=== PATIENT | female | born 1935 | race Caucasian/White ===

== ENCOUNTER → 2017-06-12 | Outpatient (CLI) | payer MEDICARE ==
--- NOTE | 2017-06-13 13:02 | PE ---
EXAMINATION TYPE: PET CT fusion skull to thigh DATE OF EXAM: 06/12/2017 COMPARISON: NONE Prior PET/CT: HISTORY: Vulvar cancer TECHNIQUE: Following the intravenous administration of 13.76 mCi of F-18 FDG, whole body images are performed from the skull base to the midthigh. Images are reviewed on the computer in the coronal, a xial, and sagittal planes. Reconstructed rotating images are created on independent workstation and reviewed on the computer. A localization and attenuation correction CT is performed in conjunction with the PET scan. DLP: 280.56 mGycm SCAN: Subsequent Scan Blood glucose: 103 mg/dL Average Mediastinum SUV: 1.63 Average Liver SUV: 1.4 FINDINGS: NECK: No abnormal uptake THORAX: There is a focus of increased radiotracer accumulation within the superior mediastinum. Image 61. This has an SUV value 2.9 suspicious for metastasis. Some subtle uptake in the anterior pleural margin right apex. Images 61 with an SUV value 1.7. There is a focus of radiotracer accumulation with in the posterior mediastinum with an SUV value of 2.3. A pretracheal node same level has an SUV of 3. 0. Multiple lymph nodes are in the pretracheal space aortopulmonic window region with SUV values rang ing 3.3-5.9 suspicious for multiple metastatic lesions within the mediastinum. A large marked area of increased radiotracer accumulation is in the subcarinal region with an SUV value of 10.6. Bilateral perihilar uptake is present with an SUV of 5.0-6.2 compatible with metastatic disease. Some right inf rahilar increased uptake is also present. ABDOMEN: No abnormal uptake PELVIS: There is marked increased uptake within the soft tissue abnormality along the left inner thig h with an SUV of 5.3. Inflammatory change or neoplasm could be considered. OSSEOUS STRUCTURES: No abnormal uptake LOCALIZATION CT: There is a large cyst on the left kidney. Diverticulosis present. Soft tissue abnorm ality in her left thigh appears diminished. There are multiple lymph nodes with calcification in the mediastinum. These areas correspond to abnor mal uptake on PET/CT. COMPARISON: Uptake within the mediastinum has been increasing over the interval. Uptake in the left a nterior thigh appears stable. IMPRESSION: 1. Increasing mediastinal adenopathy with increasing radiotracer uptake. 2. Diminished uptake within a open wound of the left inner thigh
== END ==
LOC: RADPETMAIN 10:27
PROVIDERS: ATTEND Internal Medicine Hematology & Oncology
DX: C51.9 Malignant neoplasm of vulva, unspecified (principal); R59.0 Localized enlarged lymph nodes; R93.6 Abnormal findings on diagnostic imaging of limbs
CPT/HCPCS: 78815; A9552

== ENCOUNTER 2017-09-19 11:48 | Emergency (ER) | payer MEDICARE ==
[2017-09-19 12:03] VITALS: RESP 18
--- NOTE | 2017-09-19 12:40 | ED ---
General Adult HPI - General Chief complaint: Extremity Injury, Lower Stated complaint: Fall Time Seen by Provider: 09/19/17 12:25 Source: patient, RN notes reviewed Mode of arrival: wheelchair Limitations: no limitations - History of Present Illness Initial comments: Patient 81-year-old female presented to the emergency room today with a chief complaint of pain to the right leg. She does admit that she's had some cramps in the back the right calf and Right knee. She did admits that she had a fall approximately 2 months ago. She states she landed on the right knee. She also admits that she is on chemotherapy currently. Patient denies any other injury or complaint. Patient denies any recent fever, chills, shortness of breath, chest pain, back pain, abdominal pain, nausea or vomiting, numbness or tingling , headaches or visual changes, or any other complaints. - Related Data Home Medications Medication Instructions Recorded Confirmed Aspirin EC [Ecotrin Low Dose] 81 mg PO DAILY 03/10/17 09/19/17 Lisinopril-Hctz 20-12.5 mg 1 tab PO DAILY 03/10/17 09/19/17 [Zestoretic 20-12.5] [place]-3 Fatty Acids/Fish Oil [Fish 1 cap PO DAILY 03/10/17 09/19/17 Oil 1,000 mg Softgel] HYDROcodone/APAP 7.5-325MG [[place] 1 tab PO Q6H PRN 09/19/17 09/19/17 7.5-325] Prochlorperazine [Compazine] 10 mg PO DAILY 09/19/17 09/19/17 Allergies Allergy/AdvReac Type Severity Reaction Status Date / Time No Known Allergies Allergy Verified 09/19/17 12:31 Review of Systems ROS Statement: Those systems with pertinent positive or pertinent negative responses have been documented in the HPI. ROS Other: All systems not noted in ROS Statement are negative. Past Medical History Past Medical History: Eye Disorder, Hypertension, Rheumatoid Arthritis (RA) Additional Past Medical History / Comment(s): macular degeneration lt eye, vulvular cancer, incont of urine/briefs History of Any Multi-Drug Resistant Organisms: None Reported Past Surgical History: Section, Tonsillectomy Additional Past Surgical History / Comment(s): x4 c-sections, core biopsy for vulvular cancer done at [facility] Past Anesthesia/Blood Transfusion Reactions: No Reported Reaction Past Psychological History: No Psychological Hx Reported Smoking Status: Never smoker Past Alcohol Use History: None Reported Past Drug Use History: None Reported - Past Family History Mother History Unknown: Yes Additional Family Medical History / Comment(s): mom was found at home- Father Family Medical History: Cancer General Exam - General Exam Comments Initial Comments: General: The patient is awake and alert, in no distress, and does not appear acutely ill. Neck: The neck is supple, there is no tenderness or JVD. Cardiovascular: There is a regular rate and rhythm. No murmur, rub or gallop is appreciated. Respiratory: Lungs are clear to auscultation, respirations are non-labored, breath sounds are equal. No wheezes, stridor, rales, or rhonchi. Musculoskeletal: Patient does have normal appearance of the right knee, right leg with no obvious deformity. Pedal pulse 2+. Mother tender in posterior calf and right knee. Mild tenderness medial aspect of the right knee on exam. Shows good range of motion. Sensations are intact. Neurological: A&O x 3. CN II-XII intact, There are no obvious motor or sensory deficits. Coordination appears grossly intact. Speech is normal. Skin: Skin is warm and dry and no rashes or lesions are noted. Psychiatric: Normal mood and affect. Limitations: no limitations Course Vital Signs 09/19/17 11:59 Temperature 98.8 F Pulse Rate 82 Respiratory 18 Rate Blood Pressure 107/62 O2 Sat by Pulse 98 Oximetry Medical Decision Making - Medical Decision Making X-ray reviewed negative for any acute fracture dislocation. Patient also negative for any evidence of DVT. Patient will be discharged home to follow-up family doctor and oncologist. Disposition Clinical Impression: Leg cramp Disposition: HOME SELF-CARE Condition: Good Instructions: Leg Cramps (ED) Additional Instructions: Please use medication as discussed. Please follow-up with family doctor in the next 2 days of symptoms have not improved. Please return to emergency room if the symptoms increase or worsen or for any other concerns. Is patient prescribed a controlled substance at d/c from ED?: No Referrals: Mark Lim MD [Primary Care Provider] - 1-2 days Nash Beach MD [STAFF PHYSICIAN] - 1-2 days Time of Disposition: 14:14
--- NOTE | 2017-09-19 12:56 | XR ---
EXAMINATION TYPE: XR knee complete RT DATE OF EXAM: 09/19/2017 COMPARISON: NONE HISTORY: Pain TECHNIQUE: Four views are submitted. FINDINGS: Diffuse osteopenia noted and there is chondrocalcinosis. Narrowing of the joint space is seen.. Osse ous structures are intact. No acute fracture seen. IMPRESSION: 1. No acute fracture or dislocation. 2. Osteoarthritis.
--- NOTE | 2017-09-19 13:35 | US ---
EXAMINATION TYPE: US venous doppler duplex LE RT DATE OF EXAM: 09/19/2017 12:37 PM COMPARISON: NONE CLINICAL HISTORY: Pain right leg after a fall. SIDE PERFORMED: Right TECHNIQUE: The lower extremity deep venous system is examined utilizing real time linear array sonog sara with graded compression, doppler sonography and color-flow sonography. VESSELS IMAGED: External Iliac Vein (EIV) Common Femoral Vein Deep Femoral Vein Greater Saphenous Vein * Femoral Vein Popliteal Vein Small Saphenous Vein * Proximal Calf Veins (* superficial vessels) Right Leg: Negative for DVT IMPRESSION: 1. No diagnostic evidence of DVT as visualized
[2017-09-19 14:38] VITALS: BP 107/70; PULSE 71; TEMP 98.2
== END 2017-09-19 14:38 | disposition home or self-care (01) ==
LOC: EC 11:48
DX: M79.604 Pain in right leg (principal); C51.9 Malignant neoplasm of vulva, unspecified; M79.661 Pain in right lower leg; M25.561 Pain in right knee; I10 Essential (primary) hypertension; Z79.82 Long term (current) use of aspirin; Z79.899 Other long term (current) drug therapy
CPT/HCPCS: 99284

== ENCOUNTER 2018-01-13 11:35 | Inpatient (IN) | payer MEDICARE ==
[2018-01-13] MEDS ORDERED: SODIUM CHLORIDE 0.9% 1,000 ML IV STA (11:42)
--- NOTE | 2018-01-13 11:46 | ED ---
General Adult HPI - General Stated complaint: Weakness/Confusion Time Seen by Provider: 01/13/18 11:35 Source: RN notes reviewed - History of Present Illness Initial comments: This is an 82-year-old female who presents to the emergency department via EMS. Patient's complaint is that family called EMS because they thought she had some blood in the stool. EMS states she has an ulcer right by her rectum that is bleeding a little but they didn't see any earl blood otherwise. Patient herself is alert and oriented 3 however family thought she was a little less oriented than normal but she answers all questions appropriately currently. Patient has no complaints. Patient denies any headache patient denies any numbness weakness. Patient denies any lightheadedness or dizziness. Patient denies any chest pain palpitations difficulty breathing shortness of breath. Patient denies any recent fever chills or cough. Patient denies abdominal pain. Patient denies any nausea vomiting or diarrhea. Patient states she feels fine today. Patient states she's had a ulceration next to her rectum for long as she can remember. Family states she had vulvar cancer - Related Data Home Medications Medication Instructions Recorded Confirmed Lisinopril-Hctz 20-12.5 mg 1 tab PO DAILY 03/10/17 01/13/18 [Zestoretic 20-12.5] [place]-3 Fatty Acids/Fish Oil [Fish 1 cap PO DAILY 03/10/17 01/13/18 Oil 1,000 mg Softgel] HYDROcodone/APAP 7.5-325MG [[place] 1 tab PO Q6H PRN 09/19/17 01/13/18 7.5-325] Nystatin 100,000Unit/gm Cream 1 applic TOPICAL BID 01/13/18 01/13/18 [Mycostatin Cream] Allergies Allergy/AdvReac Type Severity Reaction Status Date / Time No Known Allergies Allergy Verified 01/13/18 12:01 Review of Systems ROS Statement: Those systems with pertinent positive or pertinent negative responses have been documented in the HPI. ROS Other: All systems not noted in ROS Statement are negative. Past Medical History Past Medical History: Eye Disorder, Hypertension, Rheumatoid Arthritis (RA) Additional Past Medical History / Comment(s): macular degeneration lt eye, vulvular cancer, incont of urine/briefs History of Any Multi-Drug Resistant Organisms: None Reported Past Surgical History: Section, Tonsillectomy Additional Past Surgical History / Comment(s): x4 c-sections, core biopsy for vulvular cancer done at [facility] Past Anesthesia/Blood Transfusion Reactions: No Reported Reaction Smoking Status: Never smoker - Past Family History Mother History Unknown: Yes Additional Family Medical History / Comment(s): mom was found at home- Father Family Medical History: Cancer General Exam - General Exam Comments Initial Comments: GENERAL: Patient is well-developed and well-nourished. Patient is nontoxic and well- hydrated and is in no acute distress. ENT: Neck is soft and supple. No significant lymphadenopathy is noted. Oropharynx is clear. Moist mucous membranes. Neck has full range of motion without eliciting any pain. EYES: The sclera were anicteric and conjunctiva were pink and moist. Extraocular movements were intact and pupils were equal round and reactive to light. Eyelids were unremarkable. PULMONARY: Unlabored respirations. Good breath sounds bilaterally. No audible rales rhonchi or wheezing was noted. CARDIOVASCULAR: There is a regular rate and rhythm without any murmurs gallops or rubs. Femoral pulses are equal bilaterally ABDOMEN: Soft and nontender with normal bowel sounds. No palpable organomegaly was noted. There is no palpable pulsatile mass. RECTAL: On examination patient has a ulceration to the medial right aspect of the anus and it also involves the anus and there is erythema around it and quite a bit of stool and it SKIN: Ulceration on the medial left perineum involving the anus NEUROLOGIC: Patient is alert and oriented x3. Cranial nerves II through XII are grossly intact. Motor and sensory are also intact. Normal speech, volume and content. Symmetrical smile. MUSCULOSKELETAL: Normal extremities with adequate strength and full range of motion. No lower extremity swelling or edema. No calf tenderness. LYMPHATICS: No significant lymphadenopathy is noted PSYCHIATRIC: Normal psychiatric evaluation. Course Vital Signs 01/13/18 11:52 Temperature 98.1 F Pulse Rate 82 Respiratory 18 Rate Blood Pressure 91/49 O2 Sat by Pulse 99 Oximetry Medical Decision Making - Medical Decision Making EKG shows sinus rhythm with occasional PAC at 77 bpm DE interval is 128 QRS is 96 QT interval 414 QTC is 460. Patient's EKG shows no evidence of ST segment elevation or depression. Patient started on antibiotics emergency department 2 g Rocephin. No source of infection was found at this point but because of the white count and the potential infection with the wound I started antibiotics. Spoke with Dr. Lim admitted the patient I wrote admitting orders - Lab Data Result diagrams: 01/13/18 12:15 01/13/18 12:15 Lab Results 01/13/18 01/13/18 01/13/18 Range/Units 12:15 12:15 12:15 WBC 15.3 H (3.8-10.6) k/uL RBC 4.07 (3.80-5.40) m/uL Hgb 11.7 (11.4-16.0) gm/dL Hct 38.2 (34.0-46.0) % MCV 93.7 (80.0-100.0) fL MCH 28.8 (25.0-35.0) pg MCHC 30.8 L (31.0-37.0) g/dL RDW 13.7 (11.5-15.5) % Plt Count 541 H (150-450) k/uL Neutrophils % 89 % Lymphocytes % 6 % Monocytes % 4 % Eosinophils % 1 % Basophils % 0 % Neutrophils # 13.7 H (1.3-7.7) k/uL Lymphocytes # 0.8 L (1.0-4.8) k/uL Monocytes # 0.6 (0-1.0) k/uL Eosinophils # 0.1 (0-0.7) k/uL Basophils # 0.0 (0-0.2) k/uL PT (9.0-12.0) sec INR (<1.2) APTT (22.0-30.0) sec Sodium (137-145) mmol/L Potassium (3.5-5.1) mmol/L Chloride (98-107) mmol/L Carbon Dioxide (22-30) mmol/L Anion Gap mmol/L BUN (7-17) mg/dL Creatinine (0.52-1.04) mg/dL Est GFR (CKD-EPI)AfAm (>60 ml/min/1.73 sqM) Est GFR (CKD-EPI)NonAf (>60 ml/min/1.73 sqM) Glucose (74-99) mg/dL Plasma Lactic Acid Mark (0.7-2.0) mmol/L Calcium (8.4-10.2) mg/dL Magnesium (1.6-2.3) mg/dL Total Bilirubin (0.2-1.3) mg/dL AST (14-36) U/L ALT (9-52) U/L Alkaline Phosphatase (38-126) U/L Total Creatine Kinase <20 L (30-135) U/L CK-MB (CK-2) 1.1 (0.0-2.4) ng/mL CK-MB (CK-2) Rel Index Troponin I <0.012 (0.000-0.034) ng/mL Total Protein (6.3-8.2) g/dL Albumin (3.5-5.0) g/dL Stool Occult Blood (Negative) Blood Type A Negative Blood Type Recheck CABO Indicated Weak D (Du) POSITIVE Antibody Screen NEGATIVE PARMJIT, IgG Interpret Negative PARMJIT, Poly Interpret Negative Spec Expiration Date 01/16/2018231401/13/18 01/13/18 01/13/18 Range/Units 12:15 12:15 12:15 WBC (3.8-10.6) k/uL RBC (3.80-5.40) m/uL Hgb (11.4-16.0) gm/dL Hct (34.0-46.0) % MCV (80.0-100.0) fL MCH (25.0-35.0) pg MCHC (31.0-37.0) g/dL RDW (11.5-15.5) % Plt Count (150-450) k/uL Neutrophils % % Lymphocytes % % Monocytes % % Eosinophils % % Basophils % % Neutrophils # (1.3-7.7) k/uL Lymphocytes # (1.0-4.8) k/uL Monocytes # (0-1.0) k/uL Eosinophils # (0-0.7) k/uL Basophils # (0-0.2) k/uL PT (9.0-12.0) sec INR (<1.2) APTT (22.0-30.0) sec Sodium 132 L (137-145) mmol/L Potassium 4.6 (3.5-5.1) mmol/L Chloride 95 L (98-107) mmol/L Carbon Dioxide 28 (22-30) mmol/L Anion Gap 9 mmol/L BUN 16 (7-17) mg/dL Creatinine 0.69 (0.52-1.04) mg/dL Est GFR (CKD-EPI)AfAm >90 (>60 ml/min/1.73 sqM) Est GFR (CKD-EPI)NonAf 80 (>60 ml/min/1.73 sqM) Glucose 82 (74-99) mg/dL Plasma Lactic Acid Mark 2.0 (0.7-2.0) mmol/L Calcium 10.8 H (8.4-10.2) mg/dL Magnesium 1.8 (1.6-2.3) mg/dL Total Bilirubin 0.7 (0.2-1.3) mg/dL AST 20 (14-36) U/L ALT 11 (9-52) U/L Alkaline Phosphatase 99 (38-126) U/L Total Creatine Kinase (30-135) U/L CK-MB (CK-2) (0.0-2.4) ng/mL CK-MB (CK-2) Rel Index Troponin I (0.000-0.034) ng/mL Total Protein 6.3 (6.3-8.2) g/dL Albumin 3.2 L (3.5-5.0) g/dL Stool Occult Blood Negative (Negative) Blood Type Blood Type Recheck Weak D (Du) Antibody Screen PARMJIT, IgG Interpret PARMJIT, Poly Interpret Spec Expiration Date 01/13/18 Range/Units 12:33 WBC (3.8-10.6) k/uL RBC (3.80-5.40) m/uL Hgb (11.4-16.0) gm/dL Hct (34.0-46.0) % MCV (80.0-100.0) fL MCH (25.0-35.0) pg MCHC (31.0-37.0) g/dL RDW (11.5-15.5) % Plt Count (150-450) k/uL Neutrophils % % Lymphocytes % % Monocytes % % Eosinophils % % Basophils % % Neutrophils # (1.3-7.7) k/uL Lymphocytes # (1.0-4.8) k/uL Monocytes # (0-1.0) k/uL Eosinophils # (0-0.7) k/uL Basophils # (0-0.2) k/uL PT 10.9 (9.0-12.0) sec INR 1.1 (<1.2) APTT 28.3 (22.0-30.0) sec Sodium (137-145) mmol/L Potassium (3.5-5.1) mmol/L Chloride (98-107) mmol/L Carbon Dioxide (22-30) mmol/L Anion Gap mmol/L BUN (7-17) mg/dL Creatinine (0.52-1.04) mg/dL Est GFR (CKD-EPI)AfAm (>60 ml/min/1.73 sqM) Est GFR (CKD-EPI)NonAf (>60 ml/min/1.73 sqM) Glucose (74-99) mg/dL Plasma Lactic Acid Mark (0.7-2.0) mmol/L Calcium (8.4-10.2) mg/dL Magnesium (1.6-2.3) mg/dL Total Bilirubin (0.2-1.3) mg/dL AST (14-36) U/L ALT (9-52) U/L Alkaline Phosphatase (38-126) U/L Total Creatine Kinase (30-135) U/L CK-MB (CK-2) (0.0-2.4) ng/mL CK-MB (CK-2) Rel Index Troponin I (0.000-0.034) ng/mL Total Protein (6.3-8.2) g/dL Albumin (3.5-5.0) g/dL Stool Occult Blood (Negative) Blood Type Blood Type Recheck Weak D (Du) Antibody Screen PARMJIT, IgG Interpret PARMJIT, Poly Interpret Spec Expiration Date Disposition Clinical Impression: Infection of wound of perineum Disposition: ADMITTED IP TO THIS HOSP Referrals: Mark Lim MD [Primary Care Provider] - 1-2 days Time of Disposition: 15:39
[2018-01-13] MEDS ORDERED: HYDROmorphone 1 MG/ML 1 ML SYRINGE IVP STA ×2 (12:36→15:34)
[2018-01-13] MEDS ORDERED: ONDANSETRON 4 MG/2 ML VIAL IVP STA (12:36)
[2018-01-13 12:46] LABS: Basophils % (A) 0 %; Eosinophils # (A) 0.1 k/uL (0-0.7); Eosinophils % (A) 1 %; HCT 38.2 % (34.0-46.0); HGB 11.7 gm/dL (11.4-16.0); Lymphocytes # (A) 0.8 k/uL (1.0-4.8); Lymphocytes % (A) 6 %; MCH 28.8 pg (25.0-35.0); MCHC 30.8 g/dL (31.0-37.0); MCV 93.7 fL (80.0-100.0); Mean Platelet Volume 6.7; Monocytes # (A) 0.6 k/uL (0-1.0); Monocytes % (A) 4 %; Neutrophils # (A) 13.7 k/uL (1.3-7.7); Neutrophils % (A) 89 %; Platelet Count 541 k/uL (150-450); RBC 4.07 m/uL (3.80-5.40); RDW 13.7 % (11.5-15.5); WBC 15.3 k/uL (3.8-10.6)
[2018-01-13 12:54] LABS: ALT 11 U/L (9-52); AST 20 U/L (14-36); Albumin 3.2 g/dL (3.5-5.0); Alkaline Phosphatase 99 U/L (38-126); Anion Gap 9 mmol/L; Blood Urea Nitrogen 16 mg/dL (7-17); Calcium 10.8 mg/dL (8.4-10.2); Carbon Dioxide 28 mmol/L (22-30); Chloride 95 mmol/L (98-107); Glucose 82 mg/dL (74-99); Magnesium 1.8 mg/dL (1.6-2.3); Potassium 4.6 mmol/L (3.5-5.1); Sodium 132 mmol/L (137-145); Total Bilirubin 0.7 mg/dL (0.2-1.3); Total Protein 6.3 g/dL (6.3-8.2)
[2018-01-13 13:03] LABS: Creatine Kinase <20 U/L (30-135)
[2018-01-13 13:15] LABS: Creatine Kinase MB 1.1 ng/mL (0.0-2.4); Troponin I <0.012 ng/mL (0.000-0.034)
[2018-01-13 13:16] LABS: INR 1.1 (<1.2); Partial Thromboplastin Time 28.3 sec (22.0-30.0); Prothrombin Time 10.9 sec (9.0-12.0)
[2018-01-13] MEDS ORDERED: cefTRIAXone 2,000 MG in SODIUM CHLORIDE 0.9% 100 ML IVPB STA (15:05)
[2018-01-13] MEDS ORDERED: SODIUM CHLORIDE 0.9% 1,000 ML IV ONE (15:39)
[2018-01-13] MEDS ORDERED: LEVOFLOXACIN 750MG-D5W PMX 750 MG in DEXTROSE/WATER 1 150ML.BAG IVPB STA (15:40)
[2018-01-13 15:44] LABS: Appearance,Urine Cloudy (Clear); Bilirubin,Urine Negative (Negative); Blood,Urine Negative (Negative); Color,Urine Yellow; Glucose,Urine (UA) Negative (Negative); Ketones,Urine Negative (Negative); Leukocyte Esterase,Urine Trace (Negative); Mucus,Urine Rare /hpf; Nitrite,Urine Negative (Negative); Protein,Urine Negative (Negative); RBC,Urine <1 /hpf (0-5); Specific Gravity,Urine 1.009 (1.001-1.035); Squamous Epithelial Cell,Urine <1 /hpf (0-4); Urobilinogen,Urine <2.0 mg/dL (<2.0); WBC,Urine 1 /hpf (0-5)
[2018-01-13 17:14] VITALS: BMI 20.5
[2018-01-13] MEDS: HYDROcodone/APAP 7.5-325MG 1 EACH TAB PO PRN (19:49)
[2018-01-14] MEDS: NYSTATIN 100,000UNIT/GM CREAM 30 GM TUBE TOPICAL SCH ×3 (01:54→20:18)
--- NOTE | 2018-01-14 08:02 | P.HPIM ---
History of Present Illness H&P Date: 01/14/18 Chief Complaint: Perineal wound. This is a history and physical on an 82-year-old white female essentially admitted for bleeding per rectum. The patient has history of being treated for vulvar carcinoma and was having bright red blood per rectum. Her son, who is her caregiver was recently admitted for cellulitis, but is at [facility]. There has been issues where there is question of care and adult protective exercise been evaluating there are case at home. She is now admitted for appropriate treatment of this wound. Oncology and general surgery have been appropriately consulted. Review of Systems Constitutional: Reports fatigue, Reports weakness, Denies chills, Denies fever Eyes: denies blurred vision, denies pain Ears, nose, mouth and throat: Denies headache, Denies sore throat Cardiovascular: Denies chest pain, Denies shortness of breath Respiratory: Denies cough Gastrointestinal: Reports BRBPR Musculoskeletal: Denies myalgias Integumentary: Denies pruritus, Denies rash Neurological: Denies numbness, Denies weakness Psychiatric: Denies anxiety, Denies depression Past Medical History Past Medical History: Eye Disorder, Hypertension, Rheumatoid Arthritis (RA) Additional Past Medical History / Comment(s): macular degeneration lt eye, vulvular cancer, incont of urine/briefs History of Any Multi-Drug Resistant Organisms: None Reported Past Surgical History: Section, Tonsillectomy Additional Past Surgical History / Comment(s): x4 c-sections, core biopsy for vulvular cancer done at formerly [facility] Past Anesthesia/Blood Transfusion Reactions: No Reported Reaction Past Psychological History: No Psychological Hx Reported Additional Psychological History / Comment(s): lives with son inez-he his her caregiver and poa. has cane and getting a hospital bed delivered. has [facility] home care nurse. Smoking Status: Never smoker Past Alcohol Use History: None Reported Past Drug Use History: None Reported - Past Family History Mother History Unknown: Yes Additional Family Medical History / Comment(s): mom was found at home- Father Family Medical History: Cancer Medications and Allergies Home Medications Medication Instructions Recorded Confirmed Type Lisinopril-Hctz 20-12.5 mg 1 tab PO DAILY 03/10/17 01/13/18 History [Zestoretic 20-12.5] [place]-3 Fatty Acids/Fish Oil [Fish 1 cap PO DAILY 03/10/17 01/13/18 History Oil 1,000 mg Softgel] HYDROcodone/APAP 7.5-325MG [[place] 1 tab PO Q6H PRN 09/19/17 01/13/18 History 7.5-325] Nystatin 100,000Unit/gm Cream 1 applic TOPICAL BID 01/13/18 01/13/18 History [Mycostatin Cream] Allergies Allergy/AdvReac Type Severity Reaction Status Date / Time No Known Allergies Allergy Verified 01/13/18 12:01 Physical Exam Vitals: Vital Signs Temp Pulse Pulse Resp BP BP Pulse Ox 01/14/18 00:11 97.4 F L 75 15 103/61 96 01/13/18 19:54 98.4 F 85 16 112/61 98 01/13/18 16:40 97.6 F 76 16 133/58 100 01/13/18 16:00 97.6 F 16 100 01/13/18 15:42 86 17 135/67 97 01/13/18 11:52 98.1 F 82 18 91/49 99 Intake and Output 01/13/18 01/14/18 01/14/18 22:59 06:59 14:59 Output Total 400 160 Balance -400 -160 Output: Urine 160 Urine/Stool Mix 400 Other: Voiding Method Indwelling Catheter Indwelling Catheter Weight 50.802 kg - Constitutional General appearance: thin - EENT Eyes: EOMI - Neck Neck: no lymphadenopathy - Respiratory Respiratory: bilateral: CTA - Cardiovascular Rhythm: regular Heart sounds: normal: S1, S2 Abnormal Heart Sounds: no S3 Gallop - Gastrointestinal General gastrointestinal: soft - Genitourinary Perineal wound noted. - Musculoskeletal Musculoskeletal: generalized weakness - Psychiatric Psychiatric: no A&O x's 3 Results CBC & Chem 7: 01/13/18 12:15 01/13/18 12:15 Labs: Abnormal Lab Results - Last 24 Hours (Table) 01/13/18 01/13/18 01/13/18 Range/Units 12:15 12:15 12:15 WBC 15.3 H (3.8-10.6) k/uL MCHC 30.8 L (31.0-37.0) g/dL Plt Count 541 H (150-450) k/uL Neutrophils # 13.7 H (1.3-7.7) k/uL Lymphocytes # 0.8 L (1.0-4.8) k/uL Sodium 132 L (137-145) mmol/L Chloride 95 L (98-107) mmol/L Calcium 10.8 H (8.4-10.2) mg/dL Total Creatine Kinase <20 L (30-135) U/L Albumin 3.2 L (3.5-5.0) g/dL Urine Appearance (Clear) Ur Leukocyte Esterase (Negative) Urine Mucus (None) /hpf 01/13/18 Range/Units 15:33 WBC (3.8-10.6) k/uL MCHC (31.0-37.0) g/dL Plt Count (150-450) k/uL Neutrophils # (1.3-7.7) k/uL Lymphocytes # (1.0-4.8) k/uL Sodium (137-145) mmol/L Chloride (98-107) mmol/L Calcium (8.4-10.2) mg/dL Total Creatine Kinase (30-135) U/L Albumin (3.5-5.0) g/dL Urine Appearance Cloudy H (Clear) Ur Leukocyte Esterase Trace H (Negative) Urine Mucus Rare H (None) /hpf Thrombosis Risk Factor Assmnt - Choose All That Apply Any of the Below Risk Factors Present?: No Other Risk Factors: No Other congenital or acquired thrombophilia - If yes, enter type in comment: No Thrombosis Risk Factor Assessment Level: Very Low Risk Assessment and Plan (1) Generalized weakness Current Visit: Yes Status: Acute Code(s): R53.1 - WEAKNESS SNOMED Code(s) : 13546228 (2) Hypertension Current Visit: Yes Status: Acute Code(s): I10 - ESSENTIAL (PRIMARY) HYPERTENSION SNOMED Code(s): 81193294 (3) Infection of wound of perineum Current Visit: Yes Status: Acute Code(s): OKT5343 - SNOMED Code(s): 113866783 (4) Nausea & vomiting Current Visit: No Status: Acute Code(s): R11.2 - NAUSEA WITH VOMITING, UNSPECIFIED SNOMED Code(s): 71027356 (5) Vulvar carcinoma Current Visit: No Status: Acute Code(s): C51.9 - MALIGNANT NEOPLASM OF VULVA , UNSPECIFIED SNOMED Code(s): 102645456 Plan: This started. Antibiotic treatment with appropriate wound control if debridement is even possible given the location. Prognosis guarded secondary lower carcinoma. General surgery and oncology is not consulted. Appropriate pain control. Prognosis is guarded secondary to her vulvar carcinoma. Given her disorientation and weakness, question discharge planning for palliative versus hospice type care. I will discuss this with her son at the other hospital today. Dr. Zapien's group will covering for the weekend. Check CBC and CMP in a.m. Time with Patient: Greater than 30
[2018-01-14] MEDS ORDERED: NON-FORMULARY DRUG (Omega-3 Fatty Acids/Fish Oil [Fish Oil 1,000 Mg Softgel] 1 CAP) PO SCH (09:00)
--- NOTE | 2018-01-14 09:49 | P.GSCN ---
<Radha Palcaios - Last Filed: 01/14/18 09:26> History of Present Illness Consult date: 01/14/18 Reason for Consult: Open perineal wound ulcer History of present illness: 82-year-old thin female being seen by surgical service at the request of the attending for an open infected ulcer to the perineal area patient has a history of having vulvar cancer. Patient is a poor historian. Has no recall of events reviewing the emergency room record indicates the EMS system was activated when family thought they saw blood in the stool. EMS report indicated there to be an ulcer to the right of the rectum that was bleeding the could see no earl blood. Currently patient states she's had this ulcerative area for a long time and had received radiation treatment last treatment was in September this year emergency room record indicates patient had a core biopsy for vulvular cancer at [facility] white count on admission 15 patient does have an ulcerative area medial to the right of the anus moderate amount of redness around it currently incontinent small stool top part of the vagina pink distal from the bottom part of the vagina opening to the rectum massive ulcer covering bilateral parts of the lower buttocks difficult to do an adequate physical exam has contractures to the lower extremities unable to straighten them in the emergency room indwelling Sandhu catheter was inserted the white count in the emergency room Past medical history hypertension, rheumatoid arthritis and given degeneration left eye vulvular cancer Past surgical history , tonsillectomy, core biopsy of the vulvular Review of Systems Essentially unremarkable except as mentioned in the present illness Past Medical History Past Medical History: Eye Disorder, Hypertension, Rheumatoid Arthritis (RA) Additional Past Medical History / Comment(s): macular degeneration lt eye, vulvular cancer, incont of urine/briefs History of Any Multi-Drug Resistant Organisms: None Reported Past Surgical History: Section, Tonsillectomy Additional Past Surgical History / Comment(s): x4 c-sections, core biopsy for vulvular cancer done at [facility] Past Anesthesia/Blood Transfusion Reactions: No Reported Reaction Past Psychological History: No Psychological Hx Reported Additional Psychological History / Comment(s): lives with son inez-he his her caregiver and poa. has cane and getting a hospital bed delivered. has [facility] home care nurse. Smoking Status: Never smoker Past Alcohol Use History: None Reported Past Drug Use History: None Reported - Past Family History Mother History Unknown: Yes Additional Family Medical History / Comment(s): mom was found at home- Father Family Medical History: Cancer Medications and Allergies Home Medications Medication Instructions Recorded Confirmed Type Lisinopril-Hctz 20-12.5 mg 1 tab PO DAILY 03/10/17 01/13/18 History [Zestoretic 20-12.5] [place]-3 Fatty Acids/Fish Oil [Fish 1 cap PO DAILY 03/10/17 01/13/18 History Oil 1,000 mg Softgel] HYDROcodone/APAP 7.5-325MG [[place] 1 tab PO Q6H PRN 09/19/17 01/13/18 History 7.5-325] Nystatin 100,000Unit/gm Cream 1 applic TOPICAL BID 01/13/18 01/13/18 History [Mycostatin Cream] Allergies Allergy/AdvReac Type Severity Reaction Status Date / Time No Known Allergies Allergy Verified 01/13/18 12:01 Surgical - Exam Vital Signs Temp Pulse Resp BP Pulse Ox 98.1 F 82 18 91/49 99 01/13/18 11:52 01/13/18 11:52 01/13/18 11:52 01/13/18 11:52 01/13/18 11:52 GENERAL APPEARANCE: thin slightly cachectic in appearance 82 -year-old female patient is alert, oriented to self and place episodes of forgetfulness VITAL SIGNS: Reviewed HEENT: Head is normocephalic and atraumatic. Pupils are equal and reactive. The nares are patent. Oropharynx is clear without lesions. NECK: Supple without lymphadenopathy. Traches midline. HEART: S1, S2. Regular rate and rhythm. No murmur denying chest pain LUNGS: No crackles or wheezes are heard. Sats are 98% on room air ABDOMEN: Soft, nontender, nondistended with good bowel sounds. No peritoneal signs. No palpable organomegaly or masses. EXTREMITIES: Bilateral lower extremity contracture unable to straighten legs muscle wasting noted no heel breakdown Rectum ulcerative area covering bilateral buttocks red no odor noted incontinent small and stool no blood noted no earl rectal bleeding noted Skin ulceration involving the anus Results - Labs 01/13/18 12:15 01/13/18 12:15 Abnormal Lab Results - Last 24 Hours (Table) 10/04/18 10/04/18 10/04/18 Range/Units 12:15 12:15 12:15 WBC 15.3 H (3.8-10.6) k/uL MCHC 30.8 L (31.0-37.0) g/dL Plt Count 541 H (150-450) k/uL Neutrophils # 13.7 H (1.3-7.7) k/uL Lymphocytes # 0.8 L (1.0-4.8) k/uL Sodium 132 L (137-145) mmol/L Chloride 95 L (98-107) mmol/L Calcium 10.8 H (8.4-10.2) mg/dL Total Creatine Kinase <20 L (30-135) U/L Albumin 3.2 L (3.5-5.0) g/dL Urine Appearance (Clear) Ur Leukocyte Esterase (Negative) Urine Mucus (None) /hpf 01/13/18 Range/Units 15:33 WBC (3.8-10.6) k/uL MCHC (31.0-37.0) g/dL Plt Count (150-450) k/uL Neutrophils # (1.3-7.7) k/uL Lymphocytes # (1.0-4.8) k/uL Sodium (137-145) mmol/L Chloride (98-107) mmol/L Calcium (8.4-10.2) mg/dL Total Creatine Kinase (30-135) U/L Albumin (3.5-5.0) g/dL Urine Appearance Cloudy H (Clear) Ur Leukocyte Esterase Trace H (Negative) Urine Mucus Rare H (None) /hpf Diabetes panel 01/13/18 Range/Units 12:15 Sodium 132 L (137-145) mmol/L Potassium 4.6 (3.5-5.1) mmol/L Chloride 95 L (98-107) mmol/L Carbon Dioxide 28 (22-30) mmol/L BUN 16 (7-17) mg/dL Creatinine 0.69 (0.52-1.04) mg/dL Glucose 82 (74-99) mg/dL Calcium 10.8 H (8.4-10.2) mg/dL AST 20 (14-36) U/L ALT 11 (9-52) U/L Alkaline Phosphatase 99 (38-126) U/L Total Protein 6.3 (6.3-8.2) g/dL Albumin 3.2 L (3.5-5.0) g/dL Calcium panel 01/13/18 Range/Units 12:15 Calcium 10.8 H (8.4-10.2) mg/dL Albumin 3.2 L (3.5-5.0) g/dL Pituitary panel 01/13/18 Range/Units 12:15 Sodium 132 L (137-145) mmol/L Potassium 4.6 (3.5-5.1) mmol/L Chloride 95 L (98-107) mmol/L Carbon Dioxide 28 (22-30) mmol/L BUN 16 (7-17) mg/dL Creatinine 0.69 (0.52-1.04) mg/dL Glucose 82 (74-99) mg/dL Calcium 10.8 H (8.4-10.2) mg/dL Adrenal panel 01/13/18 Range/Units 12:15 Sodium 132 L (137-145) mmol/L Potassium 4.6 (3.5-5.1) mmol/L Chloride 95 L (98-107) mmol/L Carbon Dioxide 28 (22-30) mmol/L BUN 16 (7-17) mg/dL Creatinine 0.69 (0.52-1.04) mg/dL Glucose 82 (74-99) mg/dL Calcium 10.8 H (8.4-10.2) mg/dL Total Bilirubin 0.7 (0.2-1.3) mg/dL AST 20 (14-36) U/L ALT 11 (9-52) U/L Alkaline Phosphatase 99 (38-126) U/L Total Protein 6.3 (6.3-8.2) g/dL Albumin 3.2 L (3.5-5.0) g/dL Assessment and Plan Assessment: Impression Present on admission ulcerative area to the perineum History of Vulvar carcinoma cord biopsies done at [facility] Generalized weakness and inability to participate in ADLs Present on admission leukocytosis suspect due to infection perineuml ulcerative area Plan Continue current recommendations from medical service IV antibiotics as ordered Further recommendations after Dr. Mccabe evaluates if it would be appropriate to do debridement of peritoneal area given the location Await oncology eval Nutritional support Further surgical recommendations pending Surgical consultation note dictated for Dr. mccabe The above impression and plan of care have been discussed and directed by signing physician. Radha Palacios nurse practitioner acting as scribe for signing physician. <Portillo Mccabe - Last Filed: 01/14/18 13:28> Surgical - Exam Vital Signs Temp Pulse Resp BP Pulse Ox 98.1 F 82 18 91/49 99 01/13/18 11:52 01/13/18 11:52 01/13/18 11:52 01/13/18 11:52 01/13/18 11:52 Results - Labs 01/13/18 12:15 01/13/18 12:15 Abnormal Lab Results - Last 24 Hours (Table) 01/13/18 Range/Units 15:33 Urine Appearance Cloudy H (Clear) Ur Leukocyte Esterase Trace H (Negative) Urine Mucus Rare H (None) /hpf Assessment and Plan Assessment: As above. Patient with a large necrotic wound involving the entire anal region and perineal body. Patient with known history of peritoneal cancer. Diverting ostomy would be an option however overall prognosis remains quite poor apparently. Await oncology evaluation. Continue barrier cream around wound site at this time. No debridement planned.
[2018-01-14] MEDS: LISINOPRIL-HCTZ 20-12.5 MG 1 EACH TAB PO SCH (10:29)
[2018-01-14] MEDS: HYDROcodone/APAP 7.5-325MG 1 EACH TAB PO PRN ×2 (10:29→17:32)
[2018-01-14] MEDS ORDERED: LEVOFLOXACIN 750MG-D5W PMX 750 MG in DEXTROSE/WATER 1 150ML.BAG IVPB SCH (16:00)
[2018-01-14] MEDS: HEPARIN SODIUM,PORCINE 5,000 UNIT/ML 1 ML VIAL SQ SCH (17:31)
[2018-01-14] MEDS: FAMOTIDINE 20 MG/2 ML VIAL IV SCH (20:18)
--- NOTE | 2018-01-14 23:16 | P.CONS ---
History of Present Illness - Reason for Consult Consult date: 01/14/18 - History of Present Illness Ms. Truong is an 82 yr old white female, who was initially seen by [facility], Dr. Mcfarlane, locally, offer referral by her primary care physician. The patient had had an area of swelling and redness in the left groin that had been present for at least a year. It had apparently been growing slowly during that time and had become increasingly painful to the point where she was having difficulty in sitting or laying on her left side. She had also noted intermittent drainage from this area including blood. The patient was felt to likely have a vulvar malignancy, and was referred to [facility] oncology, Dr. Murray, at [facility] in [place]. She was seen on 01/25/17. Biopsies were performed on 01/27/17, which were nondiagnostic. PET scan from 02/02/17 showed an FDG avid soft tissue mass in the left gluteal/proximal medial left thigh subcutaneous fat extending into the midline gluteal crease. There was no evidence of metastatic disease. Mildly enlarged FDG avid lymph nodes were seen throughout the mediastinum which are felt to represent old granulomatous disease , as they were mostly calcified. Clinically the patient was felt to have locally advanced vulvar carcinoma. She was not felt to be a surgical candidate due to her age and overall frailty. Concurrent chemoradiation was recommended and the patient was referred to radiation oncology here, as she wanted to have treatment locally. 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 Definite invasion was not noted but dermis was poorly represented. Again, given that the clinical presentation was consistent with locally advanced disease, concurrent chemoradiation was recommended. The patient was therefore referred here. She denied any prior history of malignancy. She started concurrent chemoRT with weekly cisplatin. She is s/p 6 cycles She completed RT on 05/07/17,and chemo on 04/30/17. SHe had marked symptomatic improvement. She had a repeat PET on 06/13/17, showing a good partial response at the primary site, but a new area of uptake in the rt infrahilar region in the lung. SHe had a bronchoscopy with Dr Michael, which was negative. She was seen by Dr Bertrand at [facility]. She was felt to be resectable, but would require removal of the terminal rectum and anal canal, requiring a permanent colostomy most likely. She was reluctant for that and was thus referred back here. We discussed various options, including systemic combination chemo, for possible cytoreduction, that could reduce the extent of surgery. SHe ultimately decided in favor of the same, and started Carbo /Taxol on 08/30/17. She is s/p 2 cycles. The patient did not follow up in the office after cycle 2, that was given in 09/27. They were unable to contact her, and actually called emergency services for a well check. The patient's son subsequently called back and stated that he was unable to bring her to her appointments, as he was having hip replacement. He stated that he would call back to reschedule and resume chemotherapy when able. However we did not receive any communication from them subsequently, and the pt did not f/u She was brought to the ER by her family as they had noted blood in her underwear. In the ER she was noted to have extensive ulceration in the perineal area. The pt is a poor historian, and could not provide any details. She did state however, that her son is also currently hospitalized. Oncology consult was placed for further evaluation and recommendations. Review of Systems Constitutional: Reports chronic pain, Reports poor appetite, Reports weakness Eyes: denies blurred vision, denies pain Ears: deny: decreased hearing, ear discharge, earache, tinnitus Ears, nose, mouth and throat: Denies headache, Denies sore throat Cardiovascular: Reports decreased exercise tolerance Respiratory: Denies cough Gastrointestinal: Reports diarrhea Genitourinary: Reports as per HPI, Reports genital sores, Reports urge incontinence Menstruation: Reports postmenopausal Musculoskeletal: Reports limitation of motion (B/L LE), Reports muscle cramps, Reports muscle weakness (Chronic LE weakness, using wheelchair chronically ) Integumentary: Reports lesions, Reports sores Neurological: Reports gait dysfunction, Reports memory loss, Reports weakness Psychiatric: Reports memory loss Endocrine: Reports fatigue Hematologic/Lymphatic: Reports as per HPI Past Medical History Past Medical History: Eye Disorder, Hypertension, Rheumatoid Arthritis (RA) Additional Past Medical History / Comment(s): macular degeneration lt eye, vulvular cancer, incont of urine/briefs History of Any Multi-Drug Resistant Organisms: None Reported Past Surgical History: Section, Tonsillectomy Additional Past Surgical History / Comment(s): x4 c-sections, core biopsy for vulvular cancer done at [facility] Past Anesthesia/Blood Transfusion Reactions: No Reported Reaction Past Psychological History: No Psychological Hx Reported Additional Psychological History / Comment(s): lives with son inez-he his her caregiver and poa. has cane and getting a hospital bed delivered. has jon home care nurse. Smoking Status: Never smoker Past Alcohol Use History: None Reported Past Drug Use History: None Reported - Past Family History Mother History Unknown: Yes Additional Family Medical History / Comment(s): mom was found at home- Father Family Medical History: Cancer Medications and Allergies Home Medications Medication Instructions Recorded Confirmed Type Lisinopril-Hctz 20-12.5 mg 1 tab PO DAILY 03/10/17 01/13/18 History [Zestoretic 20-12.5] [place]-3 Fatty Acids/Fish Oil [Fish 1 cap PO DAILY 03/10/17 01/13/18 History Oil 1,000 mg Softgel] HYDROcodone/APAP 7.5-325MG [[place] 1 tab PO Q6H PRN 09/19/17 01/13/18 History 7.5-325] Nystatin 100,000Unit/gm Cream 1 applic TOPICAL BID 01/13/18 01/13/18 History [Mycostatin Cream] Allergies Allergy/AdvReac Type Severity Reaction Status Date / Time No Known Allergies Allergy Verified 01/13/18 12:01 Physical Exam Vitals: Vital Signs Temp Pulse Resp BP Pulse Ox 01/14/18 15:00 97.7 F 79 18 93/55 96 01/14/18 10:14 98.2 F 80 18 139/69 98 01/14/18 00:11 97.4 F L 75 15 103/61 96 01/13/18 19:54 98.4 F 85 16 112/61 98 01/13/18 16:40 97.6 F 76 16 133/58 100 Intake and Output 01/14/18 01/14/18 01/14/18 06:59 14:59 22:59 Intake Total 118 Output Total 160 425 Balance -160 118 -425 Intake: Oral 118 Output: Urine 160 425 Other: Voiding Method Indwelling Catheter Indwelling Catheter Weight 50.802 kg - Constitutional weak, cachectic, lethargic General appearance: no acute distress - EENT Eyes: EOMI, PERRLA ENT: hearing grossly normal, normal oropharynx - Neck Neck: no lymphadenopathy Thyroid: bilateral: normal size - Respiratory Respiratory: bilateral: CTA - Cardiovascular Rhythm: regular Heart sounds: normal: S1, S2 - Gastrointestinal General gastrointestinal: normal bowel sounds, soft - Genitourinary Female genitourinary: lesions (examined in presence of RN. Extensive ulcerated area left perineum, including the labial fold. Nodularity at base, raised edges , areas of necrosis, foul odor) - Integumentary Integumentary: ulcer - Neurologic Neurologic: CNII-XII intact - Musculoskeletal B/L LE weakness, contractures, chronic Musculoskeletal: generalized weakness - Psychiatric Poor recall, confused Results CBC & Chem 7: 01/13/18 12:15 01/13/18 12:15 Labs: Microbiology - Last 24 Hours (Table) 01/13/18 12:15 Blood Culture - Preliminary Blood No Growth after 24 hours Assessment and Plan (1) Infection of wound of perineum Narrative/Plan: On exam the wound most likely represents cancer recurrence and progression. It is not definite if she has a true infection vs necrosis, but it is reasonable to cover with antibiotics due to her risk. Biopsy can be done to confirm. If malignant, there is unlikely to be any benefit from debridement Current Visit: Yes Status: Acute Code(s): YCD1092 - SNOMED Code(s): 972064750 (2) Vulvar carcinoma Narrative/Plan: Therapeutic and diagnostic circumstances as described. The pt clinically appears to have at least local progression. Therapeutic options are limited. She has laready received RT to this field. The local extent of disease makes surgery very unlikely. Her PS is too poor at this time for chemo, which is not very effective as a single modality anyway for this type of malignancy - I addition metastatic disease is also a possibility. I will check CT scans for staging. We will also need to set up a family meeting once her son is discharged from hospital, as he is the MPOA Current Visit: No Status: Acute Code(s): C51.9 - MALIGNANT NEOPLASM OF VULVA , UNSPECIFIED SNOMED Code(s): 085020496 (3) Hypercalcemia Narrative/Plan: possibly malignant. This could be contributing to her confusion and recall issues, which are significantly worse that her baseline. Treat with IVF and IV bisphosphonate . Follow Ca ++ level Current Visit: Yes Status: Acute Code(s): E83.52 - HYPERCALCEMIA SNOMED Code(s): 09074130
[2018-01-15] MEDS: HEPARIN SODIUM,PORCINE 5,000 UNIT/ML 1 ML VIAL SQ SCH ×3 (00:06→17:08)
[2018-01-15] MEDS: HYDROcodone/APAP 7.5-325MG 1 EACH TAB PO PRN ×3 (00:07→20:25)
[2018-01-15] MEDS: SODIUM CHLORIDE 0.9% 1,000 ML IV SCH ×3 (00:11→20:29)
[2018-01-15] MEDS ORDERED: SODIUM CHLORIDE 0.9% 250 ML with PAMIDRONATE 60 MG IV ONE ×2 (01:00)
[2018-01-15 06:49] LABS: Glucose,Whole Blood 87 mg/dL (75-99)
[2018-01-15 07:18] LABS: HCT 24.6 % (34.0-46.0); MCH 31.4 pg (25.0-35.0); MCHC 34.6 g/dL (31.0-37.0); MCV 90.8 fL (80.0-100.0); Mean Platelet Volume 7.5; Platelet Count 330 k/uL (150-450); RBC 2.71 m/uL (3.80-5.40); RDW 13.7 % (11.5-15.5)
[2018-01-15 07:20] LABS: HGB 8.5 gm/dL (11.4-16.0)
[2018-01-15 07:49] LABS: ALT 14 U/L (9-52); AST 16 U/L (14-36); Albumin 2.1 g/dL (3.5-5.0); Alkaline Phosphatase 65 U/L (38-126); Anion Gap 5 mmol/L; Blood Urea Nitrogen 14 mg/dL (7-17); Calcium 9.2 mg/dL (8.4-10.2); Carbon Dioxide 25 mmol/L (22-30); Chloride 104 mmol/L (98-107); Glucose 81 mg/dL (74-99); Potassium 4.3 mmol/L (3.5-5.1); Sodium 134 mmol/L (137-145); Total Bilirubin 0.3 mg/dL (0.2-1.3); Total Protein 4.6 g/dL (6.3-8.2)
[2018-01-15] MEDS: FAMOTIDINE 20 MG/2 ML VIAL IV SCH ×2 (09:03→20:25)
[2018-01-15] MEDS: LISINOPRIL-HCTZ 20-12.5 MG 1 EACH TAB PO SCH (09:33)
[2018-01-15] MEDS: NYSTATIN 100,000UNIT/GM CREAM 30 GM TUBE TOPICAL SCH ×2 (09:34→20:30)
[2018-01-15] MEDS: IOPAMIDOL-300 CONTRAST 30 ML VIAL (ORAL USE) PO PRN ×2 (09:34→10:52)
--- NOTE | 2018-01-15 11:37 | P.PN ---
Subjective Progress Note Date: 01/15/18 CHIEF COMPLAINT: History of sacral perineal/coccygeal ulcer HISTORY OF PRESENT ILLNESS: The patient is a 82 year-old female who was admitted secondary to perianal ulceration. She has been seen by Dr. Garibay. She has history of vulvar cancer currently not treated with chemotherapeutic agents. I presented to the room, "Do not touch me.". Patient's nurse reports that she has been confused intermittently. Patient later apologized she reports having pain spasms. Otherwise, she is being seen by multiple consultants for history of gynecological cancer with possible metastases. PHYSICAL EXAM: VITAL SIGNS: Currently stable. GENERAL: Well-developed in no acute distress. HEENT: No sclera icterus. Extraocular movements grossly intact. Moist buccal mucosa. Head is atraumatic, normocephalic. Hears conversational speech. No nasal drainage. NECK: Supple without lymphadenopathy. CHEST: Non-labored respirations and equal bilateral excursions. CARDIOVASCULAR: Regular rate with regular rhythm. ABDOMEN: No peritonitis. MUSCULOSKELETAL: No clubbing, cyanosis. NEUROLOGIC: No focal or lateralizing signs. Cranial nerves II through XII grossly intact. PSYCH: Oriented to person. Overall agitated. SKIN: Imaging reviewed demonstrating more than stage III ulceration of sacrococcygeal area/perianal area with mild erythema LABS: Reviewed ASSESSMENT: 1. Gynecological cancer questionable metastases. 2. History of vulvar cancer, untreated 3. Perianal lesion likely related to colon cancer PLAN: 1. Overall patient was deemed poor surgical candidate with multiple medical comorbidities. 2. Any further general surgical management per Dr. Garibay 3. No acute surgical intervention needed at this time. Objective - Vital Signs Vital signs: Vital Signs Temp 97.6 F 01/15/18 00:51 Pulse 67 01/15/18 00:51 Resp 15 01/15/18 00:51 BP 103/60 01/15/18 00:51 Pulse Ox 91 L 01/15/18 00:51 Intake & Output 01/14/18 01/15/18 01/15/18 18:59 06:59 18:59 Intake Total 829 600 400 Output Total 425 300 Balance 404 300 400 Weight 50.802 kg Intake: Intake, IV Titration 600 Amount Sodium Chloride 0.9% 1, 600 000 ml @ 75 mls/hr IV . [id number] ONE Rx#:[id number] Oral 829 400 Output: Urine 425 300 Other: Voiding Method Indwelling Catheter Indwelling Catheter - Labs CBC & Chem 7: 01/15/18 06:27 01/15/18 06:27 Labs: Abnormal Lab Results - Last 24 Hours (Table) 01/15/18 01/15/18 Range/Units 06:27 06:27 RBC 2.71 L (3.80-5.40) m/uL Hgb 8.5 L D (11.4-16.0) gm/dL Hct 24.6 L (34.0-46.0) % Sodium 134 L (137-145) mmol/L Total Protein 4.6 L (6.3-8.2) g/dL Albumin 2.1 L (3.5-5.0) g/dL Microbiology - Last 24 Hours (Table) 01/13/18 12:15 Blood Culture - Preliminary Blood No Growth after 24 hours
--- NOTE | 2018-01-15 12:49 | CT ---
EXAMINATION TYPE: CT ChestAbdPelvis w con DATE OF EXAM: 01/15/2018 COMPARISON: NONE HISTORY: Vulval cancer CT DLP: 782.6 mGycm Automated exposure control for dose reduction was used. TECHNIQUE: Helical acquisition through the abdomen and pelvis was obtained without oral contrast but following the intravenous administration of 100 mL of Isovue 300. The data was formatted in the axia l, coronal and sagittal projections. FINDINGS: There is dependent atelectasis in the dependent portion of the left lung. The patient was s canned lying on her left side. The lungs are otherwise clear. There is some shotty mediastinal adenopathy. No pathologically enlarged lymph nodes are seen. There i s no pleural or pericardial fluid. Heart size is upper limits of normal. Within the abdomen, there is colonic interposition on the right. There is some thickening of the gall bladder wall which is partially contracted. The liver and spleen appear normal. The right adrenal gland is poorly visualized. The left is unremarkable. There is a 9.2 cm, simple appearing left renal cyst and a 2.7 cm, simple appearing right renal cyst. Several smaller cystic lesions are present. The pancreas is unremarkable. There is no significant retroperitoneal, iliac or inguinal adenopathy. There is a Sandhu catheter within the bladder. There is a small amount of air within the bladder. There is a 2.7 cm low attenuating lesion in the region of the left adnexa. This may represent a cyst. The uterus and right ovary appear normal. There is no significant diverticular change and there is no radiographic evidence of diverticulitis. The appendix is not visualized. Small bowel loops are normal. There is no free fluid and no free air. There is severe wedging of the L5 vertebral body which is wedged by approximately two thirds of its h eight. There is degenerative change throughout the spine. No definite bony destructive lesion is seen . IMPRESSION: 1. THICKENING OF THE GALLBLADDER WALL LIKELY DUE TO LACK OF DISTENTION. 2. CYSTIC DISEASE WITHIN THE KIDNEYS. 3. 2.7 CM LOW ATTENUATING LESION IN THE REGION OF THE LEFT ADNEXA. THIS COULD BE FURTHER ASSESSED BY PELVIC ULTRASOUND. 4. WEDGING OF THE L5 VERTEBRAL BODY WELL DEGENERATIVE CHANGE WITHIN THE SPINE.
[2018-01-15] MEDS: LEVOFLOXACIN 750MG-D5W PMX 750 MG in DEXTROSE/WATER 1 150ML.BAG IVPB SCH (17:08)
--- NOTE | 2018-01-15 21:57 | PN ---
PROGRESS NOTE DATE OF SERVICE: 01/15/2018 I am covering for Dr. Lim. This 82-year-old woman who was admitted with generalized weakness also had significant perineal lesions also. The patient was also confused as well. The patient also had colon cancer recurrence suspected, but however the CAT scan of the chest, abdomen and pelvis showed only thickening of the gallbladder, likely distention and cystic dense mass with the kidneys in 2.7 cm lesion in the left adnexa and wedging of the L5 vertebral body. Patient closely monitored. PAST MEDICAL HISTORY: Reviewed. REVIEW OF SYSTEMS: CARDIOVASCULAR: No angina. RESPIRATORY: As mentioned earlier. GI: No nausea, vomiting. Diarrhea. : No dysuria. NERVOUS SYSTEM: No numbness or weakness. ALLERGY/IMMUNOLOGY: No asthma or hayfever. MUSCULOSKELETAL: As mentioned earlier. HEMATOLOGY: As mentioned earlier. CURRENT MEDICATIONS: Reviewed and include: 1. [place] 7.5 q.6h p.r.n. 2. Pepcid 20 mg IV b.i.d. 3. Zestoretic 1 tablet p.o. daily. 4. Heparin 5 subcu q.i.d. 5. Levaquin q.48 hours. 6. Saline. EXAM: Patient is alert, oriented x3. Pulse 61, blood pressure 94/56, respiration 17, temperature 98.3, pulse ox 94% on room air. HEENT: conjunctivae normal. Oral mucosa moist. NECK: No jugular venous distention. No carotid bruit. No lymph node enlargement. CARDIOVASCULAR: S1, S2 muffled. RESPIRATORY: Breath sounds diminished in the bases. No rhonchi, no crackles. ABDOMEN: Soft, nontender. No mass palpable. LEGS: No edema, no swelling. NERVOUS SYSTEM: No focal deficits. LAB STUDIES: Hemoglobin 8.5, sodium 134. UA noted. Cultures are negative. ASSESSMENT: 1. Generalized weakness for evaluation. 2. Perineal lesion, possibly malignancy recurrence. 3. History of vulvar cancer. 4. Hypertension. 5. History of rheumatoid arthritis. 7. History of tonsillectomy. 8. Anemia. 9. Hyponatremia. RECOMMENDATIONS AND DISCUSSION: This 82-year-old woman who presented with multiple complex medical issues, we will monitor the patient closely. Continue the current medications. Otherwise, continue with broad-spectrum antibiotics. Closely follow with Hematology-Oncology and Surgery. Monitor DVT prophylaxis. Monitor blood pressure closely. Patient is still on IV fluids. Guarded prognosis because of multiple complex medical issues and further recommendations to follow. MMODL / IJN: [id number] / JARRETT
[2018-01-16] MEDS: HEPARIN SODIUM,PORCINE 5,000 UNIT/ML 1 ML VIAL SQ SCH ×4 (00:29→23:35)
[2018-01-16] MEDS: FAMOTIDINE 20 MG/2 ML VIAL IV SCH ×2 (08:09→20:32)
[2018-01-16] MEDS: LISINOPRIL-HCTZ 20-12.5 MG 1 EACH TAB PO SCH (08:10)
[2018-01-16] MEDS: HYDROcodone/APAP 7.5-325MG 1 EACH TAB PO PRN ×2 (08:10→13:33)
[2018-01-16] MEDS: SODIUM CHLORIDE 0.9% 1,000 ML IV SCH ×2 (08:14→16:46)
[2018-01-16] MEDS: NYSTATIN 100,000UNIT/GM CREAM 30 GM TUBE TOPICAL SCH ×2 (16:46→20:27)
--- NOTE | 2018-01-16 18:13 | PN ---
PROGRESS NOTE DATE OF SERVICE: 01/16/2018 I am covering for Dr. Lim. This 82 -year-old woman was admitted to the hospital with generalized weakness also had perineal lesion also. The patient also cancer. Dr. Lim following the patient closely. No chest pain. No palpitations. No fever. PHYSICAL EXAM: Alert and oriented x3. The pulse is 77, blood pressure 133/57, respiration 12, temperature 98 degrees. Pulse ox 100 percent on room air. HEENT: Conjunctivae normal. Oral mucosa moist. Neck is no jugular venous distention. No carotid bruit. No lymph node enlargement. Cardiovascular systems: S1, S2 muffled. Respiration: Breath sounds diminished in the bases. No rhonchi. No crackles. ABDOMEN: Soft, nontender. Legs are no edema. No swelling. Central nervous system: No focal deficits. LABS: At this time shows WBC 7, hemoglobin is 8.5, sodium 134. ASSESSMENT: 1. Generalized weakness for evaluation. 2. Perineal lesion, possible malignancy recurrence. 3. History of vulva cancer. 4. Hypertension. 5. History rheumatoid arthritis. 7. History of anemia. 8. Hyponatremia. RECOMMENDATIONS AND DISCUSSION: In this 82-year-old woman who presented with multiple complex medical issues, at this time, I recommend to continue current medications, symptomatic treatment . Closely follow with Hematology, Oncology regarding the further course of action. Otherwise, consider PT/OT evaluation and ECF rehab. Dr. Lim will follow. MMODL / IJN: [id number] / MTDD
[2018-01-17] MEDS: SODIUM CHLORIDE 0.9% 1,000 ML IV SCH ×3 (02:38→20:46)
[2018-01-17] MEDS: HYDROcodone/APAP 7.5-325MG 1 EACH TAB PO PRN ×3 (02:38→19:46)
--- NOTE | 2018-01-17 07:46 | P.PN ---
Subjective Principal diagnosis: This is a continue present 82-year-old white female essentially admitted for perineal wound. The patient has underlying history of vulvar carcinoma. I had a long discussion with the son on Wednesday, the family is very agreeable to hospice treatment. The patient wishes to anticipate going home in the next several days. Pain control seems to be nominal. Although at times she is disoriented to time. I do appreciate surgical input. Objective - Vital Signs Vital signs: Vital Signs Temp 97.9 F 01/17/18 07:00 Pulse 66 01/17/18 07:00 Resp 16 01/17/18 07:00 BP 118/56 01/17/18 07:00 Pulse Ox 93 L 01/17/18 07:00 Intake & Output 01/16/18 01/17/18 01/17/18 18:59 06:59 18:59 Intake Total 1400 1600 Output Total 1500 Balance 1400 100 Intake: Intake, IV Titration 1000 1600 Amount Sodium Chloride 0.9% 1, 1000 1600 000 ml @ 100 mls/hr IV . Q10H [facility] Rx#:[id number] Oral 400 Output: Urine 1500 Other: Voiding Method Indwelling Catheter Indwelling Catheter - Constitutional General appearance: Present: thin - Neck Neck: Present: lymphadenopathy - Respiratory Respiratory: bilateral: CTA - Cardiovascular Rhythm: regular Heart sounds: normal: S1, S2 Abnormal Heart Sounds: Absent: S3 Gallop - Gastrointestinal General gastrointestinal: Present: soft. Absent: tenderness - Neurologic Neurologic: Present: CNII-XII intact - Labs CBC & Chem 7: 01/15/18 06:27 01/15/18 06:27 Labs: Microbiology - Last 24 Hours (Table) 01/13/18 12:15 Blood Culture - Preliminary Blood No Growth after 72 hours Assessment and Plan (1) Generalized weakness Current Visit: Yes Status: Acute Code(s): R53.1 - WEAKNESS SNOMED Code(s) : 93290396 (2) Hypertension Current Visit: Yes Status: Acute Code(s): I10 - ESSENTIAL (PRIMARY) HYPERTENSION SNOMED Code(s): 79665693 (3) Infection of wound of perineum Current Visit: Yes Status: Acute Code(s): BQQ0624 - SNOMED Code(s): 570278350 (4) Nausea & vomiting Current Visit: No Status: Acute Code(s): R11.2 - NAUSEA WITH VOMITING, UNSPECIFIED SNOMED Code(s): 23560924 (5) Vulvar carcinoma Current Visit: No Status: Acute Code(s): C51.9 - MALIGNANT NEOPLASM OF VULVA , UNSPECIFIED SNOMED Code(s): 871118185 Plan: We'll going continue supportive care. Anticipate discharge in a.m. with hospice. Check CBC and CMP in a.m.
[2018-01-17] MEDS: HEPARIN SODIUM,PORCINE 5,000 UNIT/ML 1 ML VIAL SQ SCH ×3 (08:33→23:10)
[2018-01-17] MEDS: FAMOTIDINE 20 MG/2 ML VIAL IV SCH ×2 (08:33→20:45)
[2018-01-17] MEDS: LISINOPRIL-HCTZ 20-12.5 MG 1 EACH TAB PO SCH (08:34)
[2018-01-17] MEDS: NYSTATIN 100,000UNIT/GM CREAM 30 GM TUBE TOPICAL SCH ×2 (13:22→20:44)
--- NOTE | 2018-01-17 13:38 | P.PN ---
Progress Note - Text Progress Note Date: 01/17/18 82-year-old seen at the bedside no family at the bedside did note that the attending is referring patient to hospice care which is appropriate patient was seen by surgical service for perianal ulceration. [place] not to be a surgical candidate patient has multiple medical comorbidities Patient has a history of vulvar cancer currently not treated with chemotherapeutic agents. We'll sign off agree with hospice care whichis appropriate The above impression and plan of care have been discussed and directed by signing physician. Radha Palacios nurse practitioner acting as scribe for signing physician.
[2018-01-17] MEDS: LEVOFLOXACIN 750MG-D5W PMX 750 MG in DEXTROSE/WATER 1 150ML.BAG IVPB SCH (17:43)
[2018-01-17 23:03] VITALS: RESP 16
[2018-01-18 08:28] LABS: HCT 29.3 % (34.0-46.0); HGB 9.8 gm/dL (11.4-16.0); MCH 30.6 pg (25.0-35.0); MCHC 33.4 g/dL (31.0-37.0); MCV 91.6 fL (80.0-100.0); Mean Platelet Volume 6.8; Platelet Count 413 k/uL (150-450); RDW 14.3 % (11.5-15.5); WBC 8.1 k/uL (3.8-10.6)
[2018-01-18] MEDS: HEPARIN SODIUM,PORCINE 5,000 UNIT/ML 1 ML VIAL SQ SCH (08:37)
[2018-01-18] MEDS: NYSTATIN 100,000UNIT/GM CREAM 30 GM TUBE TOPICAL SCH (08:37)
[2018-01-18] MEDS: FAMOTIDINE 20 MG/2 ML VIAL IV SCH (08:37)
[2018-01-18] MEDS: LISINOPRIL-HCTZ 20-12.5 MG 1 EACH TAB PO SCH (08:37)
[2018-01-18] MEDS: SODIUM CHLORIDE 0.9% 1,000 ML IV SCH (08:37)
[2018-01-18 08:53] LABS: ALT 16 U/L (9-52); AST 22 U/L (14-36); Albumin 2.3 g/dL (3.5-5.0); Alkaline Phosphatase 69 U/L (38-126); Anion Gap 6 mmol/L; Blood Urea Nitrogen 9 mg/dL (7-17); Carbon Dioxide 24 mmol/L (22-30); Chloride 107 mmol/L (98-107); Glucose 86 mg/dL (74-99); Potassium 4.1 mmol/L (3.5-5.1); Sodium 137 mmol/L (137-145); Total Bilirubin 0.3 mg/dL (0.2-1.3); Total Protein 4.9 g/dL (6.3-8.2)
[2018-01-18 12:00] VITALS: BP 104/67; PULSE 66; TEMP 98.2
--- NOTE | 2018-01-18 13:56 | P.PN ---
Subjective Progress Note Date: 01/18/18 Principal diagnosis: Metastatic vulvar adenocarcinoma Family meeting today with patient and 2 sons. Patient does have discomfort in the perineal area, she has [place] catheter inserted, denies pain from the catheter, she is weak, her legs are not able to handle her weight, appetite is fair. No vomiting, shortness of breath, fevers. Objective - Vital Signs Vital signs: Vital Signs Temp 98.2 F 01/18/18 12:00 Pulse 66 01/18/18 12:00 Resp 16 01/18/18 12:00 BP 104/67 01/18/18 12:00 Pulse Ox 98 01/18/18 12:00 Intake & Output 01/17/18 01/18/18 01/18/18 18:59 06:59 18:59 Intake Total 1200 Output Total 2600 1000 650 Balance -2600 200 -650 Intake: Intake, IV Titration 1200 Amount Sodium Chloride 0.9% 1, 1200 000 ml @ 100 mls/hr IV . Q10H [facility] Rx#:[id number] Output: Urine 2600 1000 650 Uretheral (Sandhu) 1000 Other: Voiding Method Indwelling Catheter Indwelling Catheter Indwelling Catheter - Constitutional General appearance: Present: cooperative, no acute distress, thin - EENT Eyes: Present: anicteric sclerae - Respiratory Respiratory: bilateral: CTA - Cardiovascular Heart sounds: normal: S1, S2 - Gastrointestinal General gastrointestinal: Present: normal bowel sounds, soft - Integumentary Integumentary: Present: pale - Musculoskeletal Musculoskeletal: Present: generalized weakness - Psychiatric Psychiatric: Present: A&O x's 3, appropriate affect, intact judgment & insight - Labs CBC & Chem 7: 01/18/18 07:59 01/18/18 07:59 Labs: Abnormal Lab Results - Last 24 Hours (Table) 01/18/18 01/18/18 Range/Units 07:59 07:59 RBC 3.20 L (3.80-5.40) m/uL Hgb 9.8 L (11.4-16.0) gm/dL Hct 29.3 L (34.0-46.0) % Calcium 8.0 L (8.4-10.2) mg/dL Total Protein 4.9 L (6.3-8.2) g/dL Albumin 2.3 L (3.5-5.0) g/dL Microbiology - Last 24 Hours (Table) 01/13/18 12:15 Blood Culture - Preliminary Blood No Growth after 96 hours Assessment and Plan (1) Vulvar carcinoma Narrative/Plan: Dr. Beach discussed with the patient and the family diagnosis, prognosis, palliative and hospice care(. He reviewed the recent CT of the chest abdomen and pelvis results-the shotty adenopathy in the chest may or may not represent malignancy, PET scan would be required to confirm malignancy but, since there are no plans for treatment the PET scan would not add any value to the patient' s plan of care. The only significant impact it could have is on prognosis, which is 3-6 months, if adenopathy is present that could be reduced to 3-4 months. Prognosis is a guide, some patients do better and some patients may sooner due to complications as a result of malignancy or other comorbidities. All of the patient and her family's questions were answered to their satisfaction. Case was discussed with nursing as well as hospice medical office representative. Patient is okay for discharge from an oncology standpoint once plans are in place for patient care and she is cleared from attending another consulting physician standpoints. Current Visit: Yes Status: Acute Priority: High Code(s): C51.9 - MALIGNANT NEOPLASM OF VULVA, UNSPECIFIED SNOMED Code(s): 001580553 Plan: Doctor attests: I performed a history and physical examination of this patient, discussed with dictator. I agree with dictators note, documented as a scribe. Time with Patient: Greater than 30 (counseling and coordinating care)
[2018-01-18] MEDS: HYDROcodone/APAP 7.5-325MG 1 EACH TAB PO PRN (14:15)
[2018-01-18] MEDS ORDERED: LEVOFLOXACIN 750MG-D5W PMX 750 MG in DEXTROSE/WATER 1 150ML.BAG IVPB SCH (18:00)
== END 2018-01-18 14:30 | disposition hospice, inpatient (51) | DRG 760 ==
LOC: EC 11:35 → 3SUR 15:41 → 5ONC 01-17 09:33
PROVIDERS: ADMIT Family Medicine; ATTEND Family Medicine
DX: S31.502A Unspecified open wound of unspecified external genital organs, female, initial encounter (principal); E87.1 Hypo-osmolality and hyponatremia; R64 Cachexia; M48.56XA Collapsed vertebra, not elsewhere classified, lumbar region, initial encounter for fracture; S31.839A Unspecified open wound of anus, initial encounter; R15.9 Full incontinence of feces; E83.52 Hypercalcemia; C51.9 Malignant neoplasm of vulva, unspecified; D64.9 Anemia, unspecified; M06.9 Rheumatoid arthritis, unspecified; R54 Age-related physical debility; L08.9 Local infection of the skin and subcutaneous tissue, unspecified; Z66 Do not resuscitate; Z51.5 Encounter for palliative care; G89.29 Other chronic pain; I10 Essential (primary) hypertension; N39.41 Urge incontinence; R41.0 Disorientation, unspecified; H35.30 Unspecified macular degeneration; Z68.20 Body mass index [BMI] 20.0-20.9, adult; Z79.899 Other long term (current) drug therapy; Z92.21 Personal history of antineoplastic chemotherapy; Z92.3 Personal history of irradiation; Z80.9 Family history of malignant neoplasm, unspecified
CPT/HCPCS: 36415; 51702; 71260; 74177; 80053; 81001; 82272; 82550; 82553; 83605; 83735; 84484; 85025; 85027; 85610; 85730; 86850; 86880; 86900; 86901; 87040; 93005; 96361; 96374; 96375; 96376; 99285